=== PATIENT | male | born 1960 | race Caucasian/White ===

== ENCOUNTER → 2020-06-25 | Outpatient (CLI) | payer OTHER | LOC: KOH-I 09:11 | DX: M25.511 Pain in right shoulder (principal); M75.121 Complete rotator cuff tear or rupture of right shoulder, not specified as traumatic; M62.511 Muscle wasting and atrophy, not elsewhere classified, right shoulder; Z98.890 Other specified postprocedural states | CPT/HCPCS: 73221 ==

== ENCOUNTER → 2021-06-28 | Outpatient (CLI) | payer OTHER ==
[~2021-06-28] MED LIST: ALLOPURINOL300 MG PO; AMLODIPINE-BEN1 EAC4 PO; GLIMEPIRIDE4 MG PO; GLUCOPHAGE 500500 MG PO; LEVOTHYROXINE25 MC1 PO; LEXAPRO20 MG PO; LIPITOR TAB 1010 MG PO; PROTONIX 40 MG40 M1 PO; SEMGLEE (Y100 UNIT/2 SQ; VITAMIN D21250 MCG PO
[2021-06-28 11:45] LABS: HEMOGLOBIN 13.7 gm/dl (14.0-17.5); RED BLOOD COUNT 4.33 M/UL (4.20-5.50); WHITE BLOOD COUNT 9.5 K/UL (4.5-11.0)
[2021-06-28 12:02] LABS: BUN/CREATININE RATIO 25 (0-10)
== END ==
LOC: OPSV2 10:53
PROVIDERS: Orthopaedic Surgery
DX: Z01.818 Encounter for other preprocedural examination (principal); M75.101 Unspecified rotator cuff tear or rupture of right shoulder, not specified as traumatic; R94.31 Abnormal electrocardiogram [ECG] [EKG]
CPT/HCPCS: 80048; 83036; 85025; 93005

== ENCOUNTER → 2021-07-07 | Outpatient (CLI) | payer OTHER ==
[2021-07-07 11:29] LABS: BUN/CREATININE RATIO 27 (0-10)
== END ==
LOC: LAB 10:38
PROVIDERS: Orthopaedic Surgery
DX: Z01.812 Encounter for preprocedural laboratory examination (principal)
CPT/HCPCS: 36415; 80048; 86850; 86900; 86901; J7030